=== PATIENT | male | born 1995 | race Caucasian/White ===

== ENCOUNTER 2017-06-09 21:57 | Emergency (ER) | payer MEDICAID ==
[2017-06-09 22:28] VITALS: BP 136/90
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
== END 2017-06-10 00:14 | disposition home or self-care (01) ==
LOC: DL.ED 21:57
DX: S00.03XA Contusion of scalp, initial encounter (principal); S00.412A Abrasion of left ear, initial encounter; J45.909 Unspecified asthma, uncomplicated; F17.210 Nicotine dependence, cigarettes, uncomplicated; W20.8XXA Other cause of strike by thrown, projected or falling object, initial encounter; Z88.0 Allergy status to penicillin; Z91.018 Allergy to other foods
CPT/HCPCS: 70450; 99283

== ENCOUNTER 2017-10-01 11:07 | Emergency (ER) | payer MEDICAID ==
[2017-10-01 11:30] VITALS: BP 115/82
--- NOTE | 2017-10-01 12:48 | CR ---
Clinical history: 22-year-old male pain (multiple falls today). Interpretation: Complete lumbosacral spine exam (5 views) confirms a slight dorsolumbar and mild decr eased anterior height of the L1 vertebral body indicating hyperflexion compression injury (tiny kiko nal spurs suggest old injury). No previous films. No pathologic skeletal lesion, acute lumbar fracture or spondylolisthesis. Normal intervertebral disc spacing. Symmetric spacing normal-appearing SI and hip joints. CONCLUSION: No acute fractures.
--- NOTE | 2017-10-01 12:50 | CR ---
Clinical history: 22-year-old male pain associated with "multiple falls" today. Interpretation: AP, PA and lateral views of the sacrum and coccyx unremarkable. No sign of sacrococcygeal fracture or segmental dislocation. (Subtle levorotoscoliosis lumbar spine) Symmetric spacing normal-appearing SI and hip joints. No foreign bodies.
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
[2017-10-01] MEDS ORDERED: methylPREDNISolone Sodium Succinate 125 MG/2 ML SDV IM ONE (13:20)
== END 2017-10-01 13:41 | disposition home or self-care (01) ==
LOC: DL.ED 11:07
DX: M54.16 Radiculopathy, lumbar region (principal); Z88.5 Allergy status to narcotic agent; Z91.018 Allergy to other foods; Z79.899 Other long term (current) drug therapy; F17.210 Nicotine dependence, cigarettes, uncomplicated
CPT/HCPCS: 72110; 72220; 81001; 96372; 99284; J2930

== ENCOUNTER 2017-10-11 17:35 | Emergency (ER) | payer MEDICAID ==
[2017-10-11] MEDS ORDERED: Acetaminophen/HYDROcodone 325-10 MG Tab PO ONE (17:36)
[2017-10-11 17:45] VITALS: BP 138/91
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
[2017-10-11] MEDS ORDERED: Acetaminophen/HYDROcodone 325-10 MG Tab ONE (19:07)
== END 2017-10-11 19:11 | disposition home or self-care (01) ==
LOC: DL.ED 17:35
DX: S66.911A Strain of unspecified muscle, fascia and tendon at wrist and hand level, right hand, initial encounter (principal); Z88.0 Allergy status to penicillin; Z91.018 Allergy to other foods; F17.210 Nicotine dependence, cigarettes, uncomplicated; X50.9XXA Other and unspecified overexertion or strenuous movements or postures, initial encounter
CPT/HCPCS: 73090; 73110; 99283; L3908; A9270-GY

== ENCOUNTER 2018-02-09 11:05 | Emergency (ER) | payer MEDICAID ==
[2018-02-09 11:26] VITALS: BP 133/90
--- NOTE | 2018-02-09 11:45 | EDM.PDOC ---
ED HPI GENERAL MEDICAL PROBLEM - General Chief Complaint: General Stated Complaint: [id number] WISDOM TEETH PAIN/PRESSURE Time Seen by Provider: 02/09/18 11:25 Source of Information: Reports: Patient History Limitations: Reports: No Limitations - History of Present Illness INITIAL COMMENTS - FREE TEXT/NARRATIVE: This 22 yo male patient reports to the ED with intermittent dental pain over the past month. The patient reports he was seen by the dentist last week, but was advised that his insurance would not pay to have his wisdom teeth removed. The patient reports that he took Tylenol (1000 mg) several times, but has not had symptom relief. The patient reports he also attempted to contact his clinic provider, but no return calls were received. The patient also reports that he has used clove oil and Ambesol with no relief. Onset: Unknown/Unsure Duration: Week(s):, Getting Worse, Intermittent Location: Reports: Other (bilateral dental pain (intermittent)) Quality: Reports: Ache, Sharp Severity: Moderate Improves with: Reports: None Worsens with: Reports: None Associated Symptoms: Reports: No Other Symptoms Bilateral Upper Tooth/Teeth Pain Score (Numeric/FACES): 7 - Related Data Allergies Allergy/AdvReac Type Severity Reaction Status Date / Time Penicillins Allergy Severe Airway Verified 02/09/18 11:18 Tightness strawberry Allergy Airway Verified 02/09/18 11:18 Tightness tramadol Allergy Hives Verified 02/09/18 11:18 Home Meds: Home Meds Albuterol [Ventolin HFA] 2 inh INH ASDIRECTED PRN 06/09/17 [History] Sertraline HCl [Zoloft] 75 mg PO DAILY 10/01/17 [History] hydrOXYzine HCl [Atarax] 25 mg PO TID PRN 10/11/17 [History] Past Medical History - Past Health History Medical/Surgical History: Denies Medical/Surgical History HEENT History: Reports: None Cardiovascular History: Reports: None Respiratory History: Reports: Asthma, Bronchitis, Recurrent Other Respiratory History: states that he was being treated for this in [place], [facility] where he came from Gastrointestinal History: Reports: None Genitourinary History: Reports: None Musculoskeletal History: Reports: Fracture Other Musculoskeletal History: patient states that he has had multiple fractures Neurological History: Reports: Brain Injury, Head Trauma Psychiatric History: Reports: Anxiety Endocrine/Metabolic History: Reports: None Hematologic History: Reports: None Immunologic History: Reports: None Oncologic (Cancer) History: Reports: None Dermatologic History: Reports: None - Infectious Disease History Infectious Disease History: Reports: Chicken Pox - Past Surgical History Head Surgeries/Procedures: Reports: None Musculoskeletal Surgical History: Reports: Other (See Below) Dermatological Surgical History: Reports: Plastic Surgical Reconstruction/Repair Social & Family History - Family History Family Medical History: Noncontributory - Tobacco Use Smoking Status *Q: Never Smoker Years of Tobacco use: 1 Packs/Tins Daily: 0.5 Used Tobacco, but Quit: No Second Hand Smoke Exposure: No - Caffeine Use Caffeine Use: Reports: Coffee - Recreational Drug Use Recreational Drug Use: No ED ROS GENERAL - Review of Systems Review Of Systems: ROS reveals no pertinent complaints other than HPI. ED EXAM, GENERAL - Physical Exam Exam: See Below Exam Limited By: No Limitations General Appearance: Alert, WD/WN, Mild Distress Eye Exam: Bilateral Eye: EOMI, Normal Inspection, PERRL Ears: Normal External Exam, Normal Canal, Hearing Grossly Normal, Normal TMs Nose: Normal Inspection Throat/Mouth: Other (The patient has some inflammation of the posterior gums bilaterally. The patient reports increased pain in his left upper posterior mouth at the time of examination, but states his pain has been on both sides upper and lower. ) Head: Atraumatic, Normocephalic Neck: Normal Inspection, Supple, Non-Tender, Full Range of Motion. No: Lymphadenopathy (L), Lymphadenopathy (R) Respiratory/Chest: No Respiratory Distress, Lungs Clear, Normal Breath Sounds, No Accessory Muscle Use, Chest Non-Tender Cardiovascular: Normal Peripheral Pulses, Regular Rate, Rhythm, No Edema, No Gallop, No JVD, No Murmur, No Rub GI/Abdominal: Normal Bowel Sounds (Male) Exam: Deferred Rectal (Males) Exam: Deferred Back Exam: Normal Inspection, Full Range of Motion, NT Extremities: Normal Inspection, Normal Range of Motion, Non-Tender, Normal Capillary Refill, No Pedal Edema Neurological: Alert, Oriented, CN II-XII Intact, Normal Cognition, Normal Gait, Normal Reflexes, No Motor/Sensory Deficits Psychiatric: Normal Affect, Normal Mood Skin Exam: Warm, Dry, Intact, Normal Color, No Rash Lymphatic: No Adenopathy Course - Vital Signs Last Recorded V/S: Last Vital Signs Temp 36.2 C 03/19/18 11:12 Pulse 87 02/09/18 11:12 Resp 16 02/09/18 11:12 BP 133/90 02/09/18 11:26 Pulse Ox 98 02/09/18 11:12 Departure - Departure Time of Disposition: 11:39 Disposition: Home, Self-Care 01 Condition: Fair Clinical Impression: Dental abscess, Pain, dental - Discharge Information Instructions: Dental Abscess, Xoxi-hu-Mmac, Tooth Injuries, Cqux-jz-Hopy Forms: ED Department Discharge Care Plan Goals: The patient was advised of the examination results during the visit. The patient was given a script for Clindamycin (300 mg) #40 to take 1 by mouth 4 times per day and Viscous Lidocaine (2%) #100 mL to apply 5-10 mL to a cottonball placed on the area of pain every 8 hours as needed. The patient may take acetaminophen or ibuprofen as directed for temporary symptom relief. The patient will need to be seen by a dentist for continued evaluation and further treatment. If the patient has any additional symptoms or concerns, the patient should follow-up with his dentist, primary care facility or return to the emergency department.
== END 2018-02-09 11:56 | disposition home or self-care (01) ==
LOC: DL.ED 11:05
DX: K04.7 Periapical abscess without sinus (principal); Z88.0 Allergy status to penicillin; Z88.5 Allergy status to narcotic agent; Z91.018 Allergy to other foods; Z79.899 Other long term (current) drug therapy
CPT/HCPCS: 99282

== ENCOUNTER 2018-02-12 02:08 | Emergency (ER) | payer MEDICAID ==
[2018-02-12 02:14] VITALS: BP 141/92
--- NOTE | 2018-02-12 02:20 | EDM.PDOC ---
ED HPI GENERAL MEDICAL PROBLEM - General Chief Complaint: ENT Problem Stated Complaint: GIVEN PAIN MEDS TO TEETH, DONT WORK? [id number] Time Seen by Provider: 02/12/18 02:15 Source of Information: Reports: Patient History Limitations: Reports: No Limitations - History of Present Illness INITIAL COMMENTS - FREE TEXT/NARRATIVE: ED with c/o severe dental pain on right upper wisdom tooth. Pain unrelieved with tylenol and lidocaine gel Had been seen prior and started on clindamycin which casused diarrhea. Stated he attempted to find dentist but unable to afford cost of having tooth pulled. Right Upper Gums Pain Score (Numeric/FACES): 9 - Related Data Allergies Allergy/AdvReac Type Severity Reaction Status Date / Time Penicillins Allergy Severe Airway Verified 02/12/18 02:16 Tightness strawberry Allergy Airway Verified 02/12/18 02:16 Tightness tramadol Allergy Hives Verified 02/12/18 02:16 Home Meds: Home Meds Albuterol [Ventolin HFA] 2 inh INH ASDIRECTED PRN 06/09/17 [History] Sertraline HCl [Zoloft] 75 mg PO DAILY 10/01/17 [History] hydrOXYzine HCl [Atarax] 25 mg PO TID PRN 10/11/17 [History] Clindamycin HCl [Cleocin] 300 mg PO Q6H 02/12/18 [History] Lidocaine 2% [Xylocaine 2% Viscous] 100 ml .XX Q8HR PRN 02/12/18 [History] Past Medical History - Past Health History Medical/Surgical History: Denies Medical/Surgical History HEENT History: Reports: None Cardiovascular History: Reports: None Respiratory History: Reports: Asthma, Bronchitis, Recurrent Other Respiratory History: states that he was being treated for this in [facility] where he came from Gastrointestinal History: Reports: None Genitourinary History: Reports: None Musculoskeletal History: Reports: Fracture Other Musculoskeletal History: patient states that he has had multiple fractures Neurological History: Reports: Brain Injury, Head Trauma Psychiatric History: Reports: Anxiety Endocrine/Metabolic History: Reports: None Hematologic History: Reports: None Immunologic History: Reports: None Oncologic (Cancer) History: Reports: None Dermatologic History: Reports: None - Infectious Disease History Infectious Disease History: Reports: Chicken Pox - Past Surgical History Head Surgeries/Procedures: Reports: None Musculoskeletal Surgical History: Reports: Other (See Below) Dermatological Surgical History: Reports: Plastic Surgical Reconstruction/Repair Social & Family History - Family History Family Medical History: Noncontributory - Tobacco Use Smoking Status *Q: Current Every Day Smoker Years of Tobacco use: 2 Packs/Tins Daily: 0.1 Used Tobacco, but Quit: No Second Hand Smoke Exposure: Yes - Caffeine Use Caffeine Use: Reports: Coffee - Recreational Drug Use Recreational Drug Use: No ED ROS ENT - Review of Systems Review Of Systems: ROS reveals no pertinent complaints other than HPI. ED EXAM, ENT - Physical Exam Exam: See Below Exam Limited By: No Limitations General Appearance: Alert, Anxious, Mild Distress Eye Exam: Bilateral Eye: EOMI Ears: Normal External Exam Nose: Normal Inspection Mouth/Throat: Dental Pain (large area of decay to right upper posterior molar on laterl edge. mild swelling of gum and cheek. ) Head: Atraumatic, Normocephalic Neck: Normal Inspection Respiratory/Chest: No Respiratory Distress, Lungs Clear Cardiovascular: Normal Peripheral Pulses, Regular Rate, Rhythm Neurological: Alert, Oriented, Normal Cognition Psychiatric: Anxious Skin: Warm, Dry, Intact, Normal Color Course - Vital Signs Last Recorded V/S: Last Vital Signs Temp 96.6 F 02/12/18 02:10 Pulse 117 H 02/12/18 02:10 Resp 18 02/12/18 02:10 BP 141/92 H 02/12/18 02:10 Pulse Ox 96 02/12/18 02:10 - Re-Assessments/Exams Free Text/Narrative Re-Assessment/Exam: 02/12/18 05:05 Tempory dental cement placed in large cavity area. Pt noted some improvement of sharp pain in area. Departure - Departure Time of Disposition: 02:47 Disposition: Home, Self-Care 01 Condition: Good Clinical Impression: Dental caries, Pain, dental - Discharge Information Instructions: Dental Abscess, [id number] Referrals: Vj Lai NP [Primary Care Provider] - Forms: ED Department Discharge Additional Instructions: stop clindamycin continue lidocaine to painful oral area keflex 500mg one three time daily for one week chew on opposite side avoid very hot or cold liquids attempt to find dentist
== END 2018-02-12 02:55 | disposition home or self-care (01) ==
LOC: DL.ED 02:08
DX: K02.9 Dental caries, unspecified (principal); J45.909 Unspecified asthma, uncomplicated; F17.210 Nicotine dependence, cigarettes, uncomplicated; Z88.0 Allergy status to penicillin; Z91.018 Allergy to other foods; Z88.5 Allergy status to narcotic agent; Z79.899 Other long term (current) drug therapy
CPT/HCPCS: 99282

== ENCOUNTER 2018-05-02 00:52 | Emergency (ER) | payer MEDICAID ==
[2018-05-02 01:05] VITALS: BP 129/80
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
[2018-05-02] MEDS ORDERED: Acetaminophen 325 MG Tab PO ONE (02:22)
== END 2018-05-02 02:31 | disposition home or self-care (01) ==
LOC: DL.ED 00:52
DX: S60.221A Contusion of right hand, initial encounter (principal); F41.9 Anxiety disorder, unspecified; Z88.0 Allergy status to penicillin; Z88.5 Allergy status to narcotic agent; Z91.018 Allergy to other foods; Z79.899 Other long term (current) drug therapy; J45.909 Unspecified asthma, uncomplicated; W22.8XXA Striking against or struck by other objects, initial encounter
CPT/HCPCS: 73130; 99283; A9270

== ENCOUNTER 2018-05-02 13:01 | Emergency (ER) | payer MEDICAID ==
[2018-05-02 13:15] VITALS: BP 122/68
[2018-05-02] MEDS ORDERED: Acetaminophen/HYDROcodone 325-10 MG Tab PO ONE (13:34)
[2018-05-02] MEDS ORDERED: Ketorolac 30 MG/ML SDV IVPUSH ONE (13:34)
[2018-05-02] MEDS ORDERED: diphenhydrAMINE 50 MG/ML SDV IVPUSH ONE (13:34)
[2018-05-02] MEDS ORDERED: Sodium Chloride 0.9% 10 ML Syringe FLUSH PRN (13:34)
[2018-05-02] MEDS ORDERED: Vancomycin 1.5 GM in Sodium Chloride 0.9% 500 ML IV ONE (13:36)
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
== END 2018-05-02 16:16 | disposition home or self-care (01) ==
LOC: DL.ED 13:01
DX: S67.21XA Crushing injury of right hand, initial encounter (principal); L03.113 Cellulitis of right upper limb; Z91.018 Allergy to other foods; Z88.5 Allergy status to narcotic agent; Z79.899 Other long term (current) drug therapy; Z88.0 Allergy status to penicillin; W23.1XXA Caught, crushed, jammed, or pinched between stationary objects, initial encounter
CPT/HCPCS: 36415; 85025; 86140; 96365; 96366; 96375; 99283; A9270; J1200; J1885; J3370; J7040; J7050

== ENCOUNTER 2018-08-14 22:05 | Emergency (ER) | payer MEDICAID ==
[2018-08-14] MEDS ORDERED: Acetaminophen/HYDROcodone 325-10 MG Tab PO ONE (22:06)
[2018-08-14 22:11] VITALS: BP 139/101
[2018-08-14] MEDS ORDERED: Sodium Chloride 0.9% 1,000 ML IV ONE (22:20)
[2018-08-14] MEDS ORDERED: Iopamidol 612 MG/ML 100 ML Bottle IVPUSH ONE (22:20)
--- NOTE | 2018-08-14 22:31 | EDM.PDOC ---
ED HPI GENERAL MEDICAL PROBLEM - General Chief Complaint: Abdominal Pain Stated Complaint: stomach pain [id number] Time Seen by Provider: 08/14/18 22:28 Source of Information: Reports: Patient History Limitations: Reports: No Limitations - History of Present Illness INITIAL COMMENTS - FREE TEXT/NARRATIVE: c/o 3 days h/o abd pain with h/o diverticulitis. was looking at internet and thought it could be appy. 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 Middle Abdominal Pain Score (Numeric/FACES): 6 - Related Data Allergies Allergy/AdvReac Type Severity Reaction Status Date / Time Penicillins Allergy Severe Airway Verified 05/02/18 01:05 Tightness iodine Allergy Vomiting Verified 08/15/18 01:14 strawberry Allergy Airway Verified 05/02/18 01:05 Tightness tramadol Allergy Hives Verified 05/02/18 01:05 Home Meds: Home Meds Albuterol [Ventolin HFA] 2 inh INH ASDIRECTED PRN 06/09/17 [History] Past Medical History - Past Health History Medical/Surgical History: Denies Medical/Surgical History HEENT History: Reports: None Cardiovascular History: Reports: None Respiratory History: Reports: Asthma, Bronchitis, Recurrent Other Respiratory History: states that he was being treated for this in [facility] where he came from Gastrointestinal History: Reports: None Genitourinary History: Reports: None Musculoskeletal History: Reports: Fracture Other Musculoskeletal History: patient states that he has had multiple fractures Neurological History: Reports: Brain Injury, Head Trauma Psychiatric History: Reports: Anxiety Endocrine/Metabolic History: Reports: None Hematologic History: Reports: None Immunologic History: Reports: None Oncologic (Cancer) History: Reports: None Dermatologic History: Reports: None - Infectious Disease History Infectious Disease History: Reports: Chicken Pox - Past Surgical History Head Surgeries/Procedures: Reports: None Dermatological Surgical History: Reports: Plastic Surgical Reconstruction/Repair Social & Family History - Family History Family Medical History: Noncontributory - Tobacco Use Smoking Status *Q: Current Every Day Smoker Years of Tobacco use: 2 Packs/Tins Daily: 0.1 - Caffeine Use Caffeine Use: Reports: Energy Drinks - Recreational Drug Use Recreational Drug Use: Yes Drug Use in Last 12 Months: No Recreational Drug Type: Reports: Marijuana/Hashish ED ROS GENERAL - Review of Systems Review Of Systems: ROS reveals no pertinent complaints other than HPI. ED EXAM, GI/ABD - Physical Exam Exam: See Below Exam Limited By: No Limitations General Appearance: Alert, WD/WN, Mild Distress, Other ([place]) Ears: Hearing Grossly Normal Throat/Mouth: Normal Voice, No Airway Compromise Head: Atraumatic Neck: Non-Tender, Full Range of Motion Respiratory/Chest: No Respiratory Distress Cardiovascular: Regular Rate, Rhythm GI/Abdominal Exam: Soft, Tender, Other (LLQ > periumb). No: Distended, Guarding , Rigid, Rebound, Abnormal Bowel Sounds Neurological: Alert, Oriented, Normal Cognition, Normal Gait, No Motor/Sensory Deficits Psychiatric: Flat Affect Skin Exam: Warm, Dry, Normal Color Lymphatic: No Adenopathy Course - Vital Signs Last Recorded V/S: Last Vital Signs Temp 36.4 C 08/14/18 22:10 Pulse 99 08/14/18 22:10 Resp 19 08/14/18 22:10 BP 139/101 H 08/14/18 22:10 Pulse Ox 99 08/14/18 22:10 - Orders/Labs/Meds Labs: Laboratory Tests 08/14/18 08/14/18 08/14/18 Range/Units 22:30 22:30 22:30 WBC 13.0 H (5.0-10.0) 10^3/uL RBC 5.08 (4.6-6.2) 10^6/uL Hgb 14.2 (14.0-18.0) g/dL Hct 42.7 (40.0-54.0) % MCV 84.1 (80-100) fL MCH 28.0 (27.0-34.0) pg MCHC 33.3 (33.0-35.0) g/dL Plt Count 294 (150-450) 10^3/uL Neut % (Auto) 64.3 (42.2-75.2) % Lymph % (Auto) 24.7 (20.5-50.1) % [place] % (Auto) 8.0 (2-8) % Eos % (Auto) 2.6 (1.0-3.0) % Baso % (Auto) 0.4 (0.0-1.0) % Sodium 138 (135-145) mmol/L Potassium 4.1 (3.6-5.0) mmol/L Chloride 102 (101-111) mmol/L Carbon Dioxide 31.0 (21.0-31.0) mmol/L Anion Gap 9.1 BUN 15 (7-18) mg/dL Creatinine 1.0 (0.6-1.3) mg/dL Est Cr Clr Drug Dosing 107.41 mL/min Estimated GFR (MDRD) > 60 BUN/Creatinine Ratio 15.00 Glucose 92 (74-105) mg/dL Lactic Acid 0.9 (0.5-2.2) mmol/L Calcium 9.2 (8.4-10.2) mg/dl Total Bilirubin 0.3 (0.2-1.0) mg/dL AST 27 (10-42) IU/L ALT 35 (10-60) IU/L Alkaline Phosphatase 76 (42-121) IU/L Total Protein 7.0 (6.7-8.2) g/dl Albumin 4.3 (3.2-5.5) g/dl Globulin 2.7 Albumin/Globulin Ratio 1.59 Urine Color (YELLOW) Urine Appearance (CLEAR) Urine pH (5.0-9.0) Ur Specific [place] (1.005-1.030) Urine Protein (NEGATIVE) Urine Glucose (UA) (NEGATIVE) Urine Ketones (NEGATIVE) Urine Occult Blood (NEGATIVE) Urine Nitrite (NEGATIVE) Urine Bilirubin (NEGATIVE) Urine Urobilinogen (0.2-1.0) mg/dL Ur Leukocyte Esterase (NEGATIVE) Urine RBC /HPF Urine WBC (0-5/HPF) /HPF Ur Epithelial Cells /HPF Urine Bacteria (0-FEW/HPF) /HPF Urine Opiates Screen (NEGATIVE) Ur Oxycodone Screen (NEGATIVE) Urine Methadone Screen (NEGATIVE) Ur Barbiturates Screen (NEGATIVE) U Tricyclic Antidepress (NEGATIVE) Ur Phencyclidine Scrn (NEGATIVE) Ur Amphetamine Screen (NEGATIVE) U Methamphetamines Scrn (NEGATIVE) Urine MDMA Screen (NEGATIVE) U Benzodiazepines Scrn (NEGATIVE) Urine Cocaine Screen (NEGATIVE) U Marijuana (THC) Screen (NEGATIVE) 08/14/18 08/14/18 Range/Units 23:50 23:50 WBC (5.0-10.0) 10^3/uL RBC (4.6-6.2) 10^6/uL Hgb (14.0-18.0) g/dL Hct (40.0-54.0) % MCV (80-100) fL MCH (27.0-34.0) pg MCHC (33.0-35.0) g/dL Plt Count (150-450) 10^3/uL Neut % (Auto) (42.2-75.2) % Lymph % (Auto) (20.5-50.1) % [place] % (Auto) (2-8) % Eos % (Auto) (1.0-3.0) % Baso % (Auto) (0.0-1.0) % Sodium (135-145) mmol/L Potassium (3.6-5.0) mmol/L Chloride (101-111) mmol/L Carbon Dioxide (21.0-31.0) mmol/L Anion Gap BUN (7-18) mg/dL Creatinine (0.6-1.3) mg/dL Est Cr Clr Drug Dosing mL/min Estimated GFR (MDRD) BUN/Creatinine Ratio Glucose (74-105) mg/dL Lactic Acid (0.5-2.2) mmol/L Calcium (8.4-10.2) mg/dl Total Bilirubin (0.2-1.0) mg/dL AST (10-42) IU/L ALT (10-60) IU/L Alkaline Phosphatase (42-121) IU/L Total Protein (6.7-8.2) g/dl Albumin (3.2-5.5) g/dl Globulin Albumin/Globulin Ratio Urine Color Yellow (YELLOW) Urine Appearance Clear (CLEAR) Urine pH 7.0 (5.0-9.0) Ur Specific [place] 1.015 (1.005-1.030) Urine Protein Negative (NEGATIVE) Urine Glucose (UA) Negative (NEGATIVE) Urine Ketones Negative (NEGATIVE) Urine Occult Blood Negative (NEGATIVE) Urine Nitrite Negative (NEGATIVE) Urine Bilirubin Negative (NEGATIVE) Urine Urobilinogen 0.2 (0.2-1.0) mg/dL Ur Leukocyte Esterase Negative (NEGATIVE) Urine RBC Not seen /HPF Urine WBC Not seen (0-5/HPF) /HPF Ur Epithelial Cells Rare /HPF Urine Bacteria Rare (0-FEW/HPF) /HPF Urine Opiates Screen Negative (NEGATIVE) Ur Oxycodone Screen Negative (NEGATIVE) Urine Methadone Screen Negative (NEGATIVE) Ur Barbiturates Screen Negative (NEGATIVE) U Tricyclic Antidepress Negative (NEGATIVE) Ur Phencyclidine Scrn Negative (NEGATIVE) Ur Amphetamine Screen Negative (NEGATIVE) U Methamphetamines Scrn Negative (NEGATIVE) Urine MDMA Screen Negative (NEGATIVE) U Benzodiazepines Scrn Negative (NEGATIVE) Urine Cocaine Screen Negative (NEGATIVE) U Marijuana (THC) Screen Negative (NEGATIVE) Meds: Medications Discontinued Medications Generic Name Dose Route Start Last Admin Trade Name Freq PRN Reason Stop Dose Admin Hydrocodone Bitart/Acetaminophen Confirm 08/15/18 01:18 08/15/18 01:28 [place] 325-10 Mg Administered 08/15/18 01:19 Not Given Dose 1 tab .ROUTE .STK-MED ONE Sodium Chloride 1,000 mls @ 999 mls/hr 08/14/18 22:20 08/14/18 22:59 Normal Saline IV 08/14/18 23:20 999 mls/hr .BOLUS ONE Administration Clindamycin Phosphate 900 mg/ 106 mls @ 200 mls/hr 08/15/18 00:20 08/15/18 00 :31 Sodium Chloride IV 08/15/18 00:51 200 mls/hr ONETIME ONE Administration Iopamidol 100 ml 08/14/18 22:20 08/14/18 23:09 Isovue-300 (61%) IVPUSH 08/14/18 22:21 100 ml ONETIME ONE Administration Lorazepam 1 mg 08/14/18 22:34 08/14/18 22:59 Ativan PO 08/14/18 22:35 1 mg ONETIME ONE Administration Metoclopramide HCl 10 mg 08/14/18 23:38 08/14/18 23:44 Reglan IVPUSH 08/14/18 23:39 10 mg ONETIME ONE Administration Tramadol HCl Confirm 08/15/18 01:09 08/15/18 01:28 Ultram Administered 08/15/18 01:10 Not Given Dose 50 mg .ROUTE .STK-MED ONE - Re-Assessments/Exams Free Text/Narrative Re-Assessment/Exam: 08/15/18 00:21 results discussed with pt. states IV dye made him anxiety and got nauseous. Departure - Departure Time of Disposition: 01:20 Disposition: Home, Self-Care 01 Condition: Good Clinical Impression: Omphalitis in adult Abdominal pain Qualifiers: Abdominal location: periumbilical Qualified Code(s): R10.33 - Periumbilical pain - Discharge Information Instructions: Abdominal Pain, Adult, [id number] Referrals: PCP,None [Primary Care Provider] - Forms: ED Department Discharge Additional Instructions: 1) follow up at clinic if not totally better by Friday rx given; clindamycin 150mg qid x 40
[2018-08-14] MEDS ORDERED: LORazepam 1 MG Tab PO ONE (22:34)
[2018-08-14 23:02] LABS: ANION GAP 9.1; CHLORIDE,CL 102 mmol/L (101-111); SODIUM,NA 138 mmol/L (135-145)
[2018-08-14] MEDS ORDERED: Metoclopramide 10 MG/2 ML SDV IVPUSH ONE (23:38)
[2018-08-15] MEDS ORDERED: Clindamycin Phosphate 900 MG in Sodium Chloride 0.9% 100 ML IV ONE (00:20)
[2018-08-15] MEDS ORDERED: traMADol 50 MG Tab ONE (01:09)
[2018-08-15] MEDS ORDERED: Acetaminophen/HYDROcodone 325-10 MG Tab ONE (01:18)
== END 2018-08-15 01:22 | disposition home or self-care (01) ==
LOC: DL.ED 22:05
DX: L08.82 Omphalitis not of newborn (principal); F17.210 Nicotine dependence, cigarettes, uncomplicated; Z88.0 Allergy status to penicillin; Z91.018 Allergy to other foods; Z88.5 Allergy status to narcotic agent
CPT/HCPCS: 36415; 74177; 80053; 80305; 81001; 83605; 85025; 96361; 96365; 96375; 99284; A9270; J2765; J3490; J7030; J7050; Q9967

== ENCOUNTER 2018-08-18 18:20 | Emergency (ER) | payer MEDICAID ==
[2018-08-18 18:38] VITALS: BP 133/86
--- NOTE | 2018-08-18 18:41 | EDM.PDOC ---
<Paige Ortiz - Last Filed: 08/20/18 04:04> ED HPI GENERAL MEDICAL PROBLEM - General Chief Complaint: Skin Complaint Stated Complaint: belly button infected [id number] Time Seen by Provider: 08/18/18 18:30 Abdominal Pain Score (Numeric/FACES): 6 - Related Data Allergies Allergy/AdvReac Type Severity Reaction Status Date / Time Penicillins Allergy Severe Airway Verified 05/02/18 01:05 Tightness iodine Allergy Vomiting Verified 08/15/18 01:14 strawberry Allergy Airway Verified 05/02/18 01:05 Tightness tramadol Allergy Hives Verified 05/02/18 01:05 Home Meds: Home Meds Albuterol [Ventolin HFA] 2 inh INH ASDIRECTED PRN 06/09/17 [History] Course - Vital Signs Last Recorded V/S: Last Vital Signs Temp 37.2 C 08/18/18 18:30 Pulse 104 H 08/18/18 18:30 Resp 16 08/18/18 18:30 BP 133/86 08/18/18 18:30 Pulse Ox 97 08/18/18 18:30 - Orders/Labs/Meds Labs: Laboratory Tests 08/18/18 08/18/18 08/18/18 Range/Units 18:42 18:42 18:42 WBC 9.3 (5.0-10.0) 10^3/uL RBC 5.16 (4.6-6.2) 10^6/uL Hgb 14.5 (14.0-18.0) g/dL Hct 43.5 (40.0-54.0) % MCV 84.3 (80-100) fL MCH 28.1 (27.0-34.0) pg MCHC 33.3 (33.0-35.0) g/dL Plt Count 284 (150-450) 10^3/uL Neut % (Auto) 64.4 (42.2-75.2) % Lymph % (Auto) 23.7 (20.5-50.1) % [place] % (Auto) 8.6 H (2-8) % Eos % (Auto) 2.9 (1.0-3.0) % Baso % (Auto) 0.4 (0.0-1.0) % Sodium 139 (135-145) mmol/L Potassium 4.0 (3.6-5.0) mmol/L Chloride 101 (101-111) mmol/L Carbon Dioxide 33.0 H (21.0-31.0) mmol/L Anion Gap 9.0 BUN 16 (7-18) mg/dL Creatinine 0.9 (0.6-1.3) mg/dL Est Cr Clr Drug Dosing 117.31 mL/min Estimated GFR (MDRD) > 60 BUN/Creatinine Ratio 17.77 Glucose 87 (74-105) mg/dL Lactic Acid 0.8 (0.5-2.2) mmol/L Calcium 9.3 (8.4-10.2) mg/dl Total Bilirubin 0.4 (0.2-1.0) mg/dL AST 30 (10-42) IU/L ALT 33 (10-60) IU/L Alkaline Phosphatase 76 (42-121) IU/L Total Protein 7.1 (6.7-8.2) g/dl Albumin 4.4 (3.2-5.5) g/dl Globulin 2.7 Albumin/Globulin Ratio 1.63 Meds: Medications Discontinued Medications Generic Name Dose Route Start Last Admin Trade Name Freq PRN Reason Stop Dose Admin Acetaminophen 650 mg 08/18/18 19:33 08/18/18 19:43 Tylenol PO 08/18/18 19:34 650 mg NOW ONE Administration Diphenhydramine HCl 25 mg 08/18/18 20:47 08/18/18 20:50 Benadryl PO 08/18/18 20:48 25 mg ONETIME ONE Administration Vancomycin HCl 1,530.87 mg 08/18/18 19:32 Vancomycin 15 mg/kg (1530.87 mg) 08/18/18 19:33 IV ONETIME ONE Vancomycin HCl 1,500 mg 08/18/18 19:32 08/18/18 19:42 Vancomycin IV 08/18/18 19:33 1,500 mg ONETIME ONE Administration Departure - Departure Time of Disposition: 21:35 Disposition: Home, Self-Care 01 Condition: Good Clinical Impression: Omphalitis in adult - Discharge Information *PRESCRIPTION DRUG MONITORING PROGRAM REVIEWED*: No Instructions: Skin Abscess, [id number] Referrals: PCP,None [Primary Care Provider] - Forms: ED Department Discharge Additional Instructions: Alternate tylenol and ibuprofen every 4 hours as needed for pain increase clindamycin to 300mg 4 times daily follow in clinic to recheck on , call tomorrow morning to schedule <Wei Goodman - Last Filed: 08/20/18 07:06> ED HPI GENERAL MEDICAL PROBLEM - General Source of Information: Reports: Patient History Limitations: Reports: No Limitations - History of Present Illness INITIAL COMMENTS - FREE TEXT/NARRATIVE: This 23 yo male patient reports to the ED with a possible infection in his belly button. The patient was seen on 08/15/18 in the ED for similar symptoms. 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 The patient reports that he has continued to have pain in his belly button. The patient reports that he has had a cotton ball in his belly button and has noticed that the cotton ball has been wet and bloody. The patient reports that he attempted to get into the walk-in clinic prior to coming to the ED (at 1830), but they could not see him. The patient had lab work, oral medications and a CT during his initial visit. The patient was advised to follow-up with his primary care facility on Friday if his symptoms have not resolved. Duration: Day(s):, Constant Location: Reports: Abdomen (umbilicus ) Quality: Reports: Ache Severity: Moderate Improves with: Reports: None Worsens with: Reports: None Associated Symptoms: Reports: No Other Symptoms Past Medical History - Past Health History Medical/Surgical History: Denies Medical/Surgical History HEENT History: Reports: None Cardiovascular History: Reports: None Respiratory History: Reports: Asthma, Bronchitis, Recurrent Other Respiratory History: states that he was being treated for this in [facility] where he came from Gastrointestinal History: Reports: None Genitourinary History: Reports: None Musculoskeletal History: Reports: Fracture Other Musculoskeletal History: patient states that he has had multiple fractures Neurological History: Reports: Brain Injury, Head Trauma Psychiatric History: Reports: Anxiety Endocrine/Metabolic History: Reports: None Hematologic History: Reports: None Immunologic History: Reports: None Oncologic (Cancer) History: Reports: None Dermatologic History: Reports: None - Infectious Disease History Infectious Disease History: Reports: Chicken Pox - Past Surgical History Head Surgeries/Procedures: Reports: None Dermatological Surgical History: Reports: Plastic Surgical Reconstruction/Repair Social & Family History - Family History Family Medical History: Noncontributory - Caffeine Use Caffeine Use: Reports: Energy Drinks ED ROS GENERAL - Review of Systems Review Of Systems: ROS reveals no pertinent complaints other than HPI. ED EXAM, SKIN/RASH Exam: See Below Exam Limited By: No Limitations General Appearance: Alert, WD/WN, No Apparent Distress Eye Exam: Bilateral Eye: EOMI, Normal Inspection, PERRL Ears: Normal External Exam, Normal Canal, Hearing Grossly Normal, Normal TMs Nose: Normal Inspection, Normal Mucosa, No Blood Throat/Mouth: Normal Inspection, Normal Lips, Normal Teeth, Normal Gums, Normal Oropharynx, Normal Voice, No Airway Compromise Head: Atraumatic, Normocephalic Neck: Normal Inspection, Supple, Non-Tender, Full Range of Motion Respiratory/Chest: No Respiratory Distress, Lungs Clear, Normal Breath Sounds, No Accessory Muscle Use, Chest Non-Tender Cardiovascular: Normal Peripheral Pulses, Regular Rate, Rhythm, No Edema, No Gallop, No JVD, No Murmur, No Rub GI/Abdominal: Normal Bowel Sounds, Soft, No Organomegaly, No Distention, No Abnormal Bruit, No Mass, Pelvis Stable, Tender (Periumbilical tenderness) (Male) Exam: Deferred Rectal (Males) Exam: Deferred Back Exam: Normal Inspection, Full Range of Motion, NT Extremities: Normal Inspection, Normal Range of Motion, Non-Tender, No Pedal Edema, Normal Capillary Refill Neurological: Alert, Oriented, CN II-XII Intact, Normal Cognition, Normal Gait, Normal Reflexes, No Motor/Sensory Deficits Psychiatric: Normal Affect, Normal Mood Skin: Erythema (within his umbilicus with a small amount of bloody drainage) Location, Skin: Other Characteristics: Erythematous Associated features: Tenderness. No: Warmth, Swelling, Induration Lymphatic: No Adenopathy Course - Vital Signs Last Recorded V/S: Last Vital Signs Temp 37.2 C 08/18/18 18:30 Pulse 104 H 08/18/18 18:30 Resp 16 08/18/18 18:30 BP 133/86 08/18/18 18:30 Pulse Ox 97 08/18/18 18:30 - Orders/Labs/Meds Labs: Laboratory Tests 08/18/18 08/18/18 08/18/18 Range/Units 18:42 18:42 18:42 WBC 9.3 (5.0-10.0) 10^3/uL RBC 5.16 (4.6-6.2) 10^6/uL Hgb 14.5 (14.0-18.0) g/dL Hct 43.5 (40.0-54.0) % MCV 84.3 (80-100) fL MCH 28.1 (27.0-34.0) pg MCHC 33.3 (33.0-35.0) g/dL Plt Count 284 (150-450) 10^3/uL Neut % (Auto) 64.4 (42.2-75.2) % Lymph % (Auto) 23.7 (20.5-50.1) % [place] % (Auto) 8.6 H (2-8) % Eos % (Auto) 2.9 (1.0-3.0) % Baso % (Auto) 0.4 (0.0-1.0) % Sodium 139 (135-145) mmol/L Potassium 4.0 (3.6-5.0) mmol/L Chloride 101 (101-111) mmol/L Carbon Dioxide 33.0 H (21.0-31.0) mmol/L Anion Gap 9.0 BUN 16 (7-18) mg/dL Creatinine 0.9 (0.6-1.3) mg/dL Est Cr Clr Drug Dosing 117.31 mL/min Estimated GFR (MDRD) > 60 BUN/Creatinine Ratio 17.77 Glucose 87 (74-105) mg/dL Lactic Acid 0.8 (0.5-2.2) mmol/L Calcium 9.3 (8.4-10.2) mg/dl Total Bilirubin 0.4 (0.2-1.0) mg/dL AST 30 (10-42) IU/L ALT 33 (10-60) IU/L Alkaline Phosphatase 76 (42-121) IU/L Total Protein 7.1 (6.7-8.2) g/dl Albumin 4.4 (3.2-5.5) g/dl Globulin 2.7 Albumin/Globulin Ratio 1.63 Meds: Medications Discontinued Medications Generic Name Dose Route Start Last Admin Trade Name Freq PRN Reason Stop Dose Admin Acetaminophen 650 mg 08/18/18 19:33 08/18/18 19:43 Tylenol PO 08/18/18 19:34 650 mg NOW ONE Administration Diphenhydramine HCl 25 mg 08/18/18 20:47 08/18/18 20:50 Benadryl PO 08/18/18 20:48 25 mg ONETIME ONE Administration Vancomycin HCl 1,530.87 mg 08/18/18 19:32 Vancomycin 15 mg/kg (1530.87 mg) 08/18/18 19:33 IV ONETIME ONE Vancomycin HCl 1,500 mg 08/18/18 19:32 08/18/18 19:42 Vancomycin IV 08/18/18 19:33 1,500 mg ONETIME ONE Administration
[2018-08-18 19:08] LABS: CHLORIDE,CL 101 mmol/L (101-111); SODIUM,NA 139 mmol/L (135-145)
[2018-08-18] MEDS ORDERED: Vancomycin 500 MG SDV IV ONE ×2 (19:32)
[2018-08-18] MEDS ORDERED: Acetaminophen 325 MG Tab PO ONE (19:33)
[2018-08-18] MEDS ORDERED: diphenhydrAMINE 25 MG Tab PO ONE (20:47)
== END 2018-08-18 21:33 | disposition home or self-care (01) ==
LOC: DL.ED 18:20
DX: L08.82 Omphalitis not of newborn (principal); F41.9 Anxiety disorder, unspecified; Z88.0 Allergy status to penicillin; Z91.018 Allergy to other foods; Z88.5 Allergy status to narcotic agent
CPT/HCPCS: 36415; 80053; 83605; 85025; 87070; 96365; 96366; 99282; A9270-GY; J3370